=== PATIENT | male | born 1975 | race African-American/Black ===

== ENCOUNTER 2020-11-26 20:31 | Emergency (ER) | payer SELFPAY ==
[~2020-11-26] VITALS: Ht 180.3 cm; Wt 98.6 kg
[2020-11-26 21:06] LABS: BASOPHILS % 0.2 % (0.0-2.0); EOSINOPHILS % 0.1 % (0.0-5.0); HEMATOCRIT. 37.6 % (42.0-52.0); HEMOGLOBIN. 12.2 g/dL (14.0-18.0); LYMPHOCYTES % 8.4 % (20.0-50.0); MEAN CORPUSCULAR HEMOGLOBIN 26.1 pg (28.0-32.0); MEAN CORPUSCULAR VOLUME 80.2 fL (80.0-94.0); MONOCYTES % 6.9 % (2.0-8.0); NEUTROPHILS % 84.4 % (40.0-76.0); RED BLOOD CELL COUNT 4.68 mill/uL (4.7-6.1); RED CELL DISTRIBUTION WIDTH 15.6 % (11.6-14.6)
[2020-11-26 21:17] LABS: CHLORIDE 102 mEq/L (98-107); INR 1.1; PROTHROMBIN TIME 11.4 sec (9.6-11.0)
[2020-11-26 22:05] LABS: MEAN PLATELET VOLUME 10.2 fl (7.4-10.4); PLATELET 250 x1000/uL (130-400)
[2020-11-26] MEDS ORDERED: ONDANSETRON HCL 4MG/2ML INJ IV STA (23:00)
[2020-11-26] MEDS ORDERED: MORPHINE SULFATE 4 MG/ML CPJ (NOT FOR IM USE) IV STA (23:00)
[2020-11-26] MEDS ORDERED: SODIUM CHLORIDE 0.9% 1,000 ML IV ONE (23:15)
[2020-11-27 00:23] LABS: CLARITY URINE CLEAR (CLEAR); COLOR URINE YELLOW (YELLOW); KETONES URINE TRACE (NEGATIVE); LEUKOCYTE ESTERASE URINE NEGATIVE (NEGATIVE); NITRITE URINE NEGATIVE (NEGATIVE); OCCULT BLOOD URINE 1+ (NEGATIVE); PROTEIN URINE TRACE (NEGATIVE); SPECIFIC GRAVITY URINE 1.021 (1.005-1.030); UROBILINOGEN URINE 0.2 E.U./dL (0.2-1.0)
[2020-11-27] MEDS ORDERED: SODIUM CHLORIDE 0.9% 1,000 ML IV ONE (01:00)
[2020-11-27] MEDS ORDERED: CEPHALEXIN 250MG CAPSULE PO ONE (02:30)
[2020-11-27] MEDS ORDERED: TAMSULOSIN HCL 0.4MG SR CAPSULE PO SCH (02:30)
[2020-11-27] MEDS ORDERED: OXYC-100 MT (02:33)
[2020-11-27] MEDS ORDERED: CEPH250C2 MT (02:33)
[2020-11-27] MEDS ORDERED: IBUP-2029 MT (02:33)
[2020-11-27] MEDS ORDERED: TAMS-11 MT (02:33)
[2020-11-27] MEDS ORDERED: ONDA4TAB5 MT (02:33)
[2020-11-27 03:10] VITALS: BP 123/70
== END 2020-11-27 03:11 | disposition home or self-care (01) ==
LOC: ER 20:31
DX: N13.2 Hydronephrosis with renal and ureteral calculous obstruction (principal)
CPT/HCPCS: 36415; 74176; 80053; 81003; 83690; 85025; 85610; 96374; 96375; 99285; J2270; J2405; Z7610; A4315